=== PATIENT | male | born 1970 | race Caucasian/White ===

== ENCOUNTER 2016-11-11 20:00 | Emergency (ER) | payer OTHER ==
[~2016-11-11] VITALS: Ht 170.2 cm; Wt 92.7 kg
[2016-11-11 20:39] LABS: HEMATOCRIT 43.3 % (38.0-50.0); MCHC 35.3 G/DL (30.0-36.0); MCV 87.8 FL (86-99); MEAN PLAT.VOLUME 9.3 uM^3 (9.0-12.4); PLATELET COUNT 262 K/uL (156-360); RBC DIS.WIDTH-CV 12.1 % (11.8-14.6); RBC DIS.WIDTH-SD 39.1 % (39-53); RED BLOOD COUNT 4.93 M/uL (4.00-5.50); WHITE BLOOD COUNT 8.6 K/uL (4.1-10.2)
[2016-11-11 20:50] LABS: CHLORIDE 107 mEq/L (99-109); POTASSIUM 4.1 mEq/L (3.7-5.4); SODIUM 141 mEq/L (136-147)
[2016-11-11 20:52] LABS: GLUCOSE 121 mg/dL (70-99)
[2016-11-11 20:53] LABS: ANION GAP 11 MEQ/L (2-14)
[2016-11-11 20:54] LABS: TOTAL BILIRUBIN 0.8 mg/dL (0.0-1.0)
[2016-11-11 20:56] LABS: ALKALINE PHOSPHATASE 78 IU/L (3-129); GFR ESTIMATE (CALCULATED) > 59 mL/min/
[2016-11-11 20:57] LABS: UREA NITROGEN (BUN) 16 mg/dL (9-23)
[2016-11-11 21:35] LABS: ADD MIUA? YES; BILIRUBIN NEGATIVE; BLOOD LARGE; COLOR YELLOW ((YELLOW)); GLUCOSE (STRIP) NEGATIVE; KETONES NEGATIVE; LEUKOCYTES NEGATIVE; NITRITE NEGATIVE; PROTEIN (STRIP) 30; SPECIFIC GRAVITY 1.019 (1.000-1.030); UROBILINOGEN 0.2 MG/DL (0.2-1.0)
[2016-11-11 21:43] LABS: BACTERIA NONE SEEN /HPF; EPITHELIAL CELLS RARE /HPF; HYALINE CASTS 0-5 /LPF; MUCUS 1+ /LPF; RED BLOOD CELLS TNTC /HPF (0-5); UCUL ADDED? NO; WHITE BLOOD CELLS 0-5 /HPF (0-5)
[2016-11-11] MEDS ORDERED: ZOFRAN4 MG PO (22:36)
[2016-11-11] MEDS ORDERED: FLOMAX0.4 MG PO (22:36)
[2016-11-11] MEDS ORDERED: PERCOCET 5/31 TABLET PO (22:36)
[2016-11-11 22:54] VITALS: BP 138/78
== END 2016-11-11 22:55 | disposition home or self-care (01) ==
LOC: EME 20:00
PROVIDERS: Physician Assistant
DX: N13.2 Hydronephrosis with renal and ureteral calculous obstruction (principal); Z87.442 Personal history of urinary calculi; R91.8 Other nonspecific abnormal finding of lung field
CPT/HCPCS: 74176; 80053; 81003; 85027; 99281; 99284; J1885